=== PATIENT | female | born 1970 | race Asian ===

== ENCOUNTER 2022-05-30 17:15 | Emergency (ER) | payer OTHER ==
[2022-05-30 17:21] VITALS: BP 117/75; PULSE 85; RESP 18; TEMP 97.4; BMI 28.8
[2022-05-30] MEDS ORDERED: IBUPROFEN 600 MG TABLET (FP) PO ONE ×2 (19:11→19:44)
== END 2022-05-30 20:27 | disposition home or self-care (01) ==
LOC: JERFT 17:15
DX: S42.295A Other nondisplaced fracture of upper end of left humerus, initial encounter for closed fracture (principal); W10.8XXA Fall (on) (from) other stairs and steps, initial encounter
CPT/HCPCS: 71046-TC-FY; 73030-TC-RT-FY; 99284-25